=== PATIENT | male | born 1960 | race African-American/Black ===

== ENCOUNTER 2019-07-20 12:32 | Inpatient (IN) | payer OTHER ==
[~2019-07-20] VITALS: Ht 188 cm; Wt 124.8 kg
[2019-07-20 19:28] LABS: Basophils # (auto) 0 uL; Basophils % (auto) 0.3 % (0.0-2.0); Eosinophils # (auto) 0 uL; Eosinophils % (auto) 0.4 % (0.0-7.0); Hematocrit 38.1 % (41.0-53.0); Hemoglobin 12.4 g/dL (13.5-17.5); Lymphocytes # (auto) 1.6 uL; Lymphocytes % (auto) 17.4 % (10.0-50.0); Mean Corpuscular Hemoglobin 29.1 pg (28.0-32.0); Mean Corpuscular Hgb Conc. 32.6 g/dL (32.0-36.0); Mean Corpuscular Volume 89.3 fL (80.0-100.0); Monocytes % (auto) 11.1 % (0.0-12.0); Neutrophils # (auto) 6.6 uL; Neutrophils % (auto) 70.8 % (37.0-80.0); Nucleated Red Blood Cells % 0.1 %; Platelet Count (auto) 179 10^3/uL (140-450); Red Blood Cells 4.27 10^6/uL (4.5-5.90); Red Cell Distribution Width 15.2 % (11.8-14.3); White Blood Cell 9.4 10^3/uL (4.4-10.8)
[2019-07-20 19:41] LABS: Albumin 3.5 g/dL (3.4-5.0); Potassium 4.4 mmol/L (3.5-5.1)
[2019-07-20 19:45] LABS: BUN/Creatinine Ratio 15.3; Bilirubin, Total 0.5 mg/dL (0.2-1.0)
[2019-07-20] MEDS ORDERED: MORPHINE SULFATE 4 MG/ML SYR/VIAL IV ONE (19:45)
[2019-07-20] MEDS ORDERED: ONDANSETRON HCL 4 MG/2 ML VIAL IV ONE (19:45)
[2019-07-20] MEDS ORDERED: cefTRIAXone 1GM/50ML D5W 50 ML IV ONE (20:00)
[2019-07-20] MEDS ORDERED: CLINDAMYCIN 900MG IV 50 ML IV ONE (20:00)
[2019-07-20] MEDS ORDERED: ONDANSETRON HCL 4 MG/2 ML VIAL IV PRN (21:30)
[2019-07-20] MEDS ORDERED: TEMAZEPAM 15 MG CAP PO PRN (21:30)
[2019-07-20] MEDS ORDERED: ACETAMINOPHEN 325 MG TAB PO PRN (21:30)
[2019-07-20] MEDS: FAMOTIDINE 20 MG TAB PO SCH (22:23)
[2019-07-20] MEDS: HYDROcodone-ACET 5/325MG TAB PO PRN (23:12)
[2019-07-21] MEDS ORDERED: BUPR8MIS (00:08)
[2019-07-21] MEDS: SUMAtriptan SUCCINATE 25 MG TAB PO PRN ×2 (02:15→17:23)
[2019-07-21 05:00] VITALS: BP 119/74
[2019-07-21 05:38] LABS: Basophils # (auto) 0 uL; Basophils % (auto) 0.1 % (0.0-2.0); Eosinophils # (auto) 0.1 uL; Eosinophils % (auto) 0.5 % (0.0-7.0); Hematocrit 38.2 % (41.0-53.0); Hemoglobin 13.2 g/dL (13.5-17.5); Lymphocytes # (auto) 1.5 uL; Lymphocytes % (auto) 15.1 % (10.0-50.0); Mean Corpuscular Hgb Conc. 34.4 g/dL (32.0-36.0); Monocytes # (auto) 1.3 uL; Monocytes % (auto) 12.9 % (0.0-12.0); Neutrophils # (auto) 7.3 uL; Neutrophils % (auto) 71.4 % (37.0-80.0); Platelet Count (auto) 213 10^3/uL (140-450); Red Blood Cells 4.39 10^6/uL (4.5-5.90); Red Cell Distribution Width 14.4 % (11.8-14.3); White Blood Cell 10.2 10^3/uL (4.4-10.8)
[2019-07-21 06:15] LABS: Calcium 8.4 mg/dL (8.5-10.1); Potassium 4.1 mmol/L (3.5-5.1)
[2019-07-21 06:17] LABS: BUN/Creatinine Ratio 16.5
[2019-07-21] MEDS: CLINDAMYCIN 600MG IV 50 ML IV SCH ×3 (06:50→22:45)
[2019-07-21 08:00] VITALS: BP 132/72
[2019-07-21] MEDS: FAMOTIDINE 20 MG TAB PO SCH ×2 (10:37→22:45)
[2019-07-21] MEDS: ENOXAPARIN SOD 40 MG/0.4 ML SYRINGE SC SCH (10:38)
[2019-07-21 13:00] VITALS: BP 136/68
[2019-07-21 17:00] VITALS: BP 130/84
[2019-07-21 20:00] VITALS: BP 131/76
[2019-07-21] MEDS: cefTRIAXone 1GM/50ML D5W 50 ML IV SCH (21:03)
[2019-07-21 22:00] VITALS: BP 131/76
[2019-07-21] MEDS: HYDROcodone-ACET 5/325MG TAB PO PRN (22:48)
[2019-07-22] VITALS (7 sets, daily range): BP systolic 118–149; BP diastolic 51–88
[2019-07-22] MEDS: CLINDAMYCIN 600MG IV 50 ML IV SCH ×3 (05:32→21:34)
[2019-07-22] MEDS: FAMOTIDINE 20 MG TAB PO SCH ×2 (10:16→21:34)
[2019-07-22] MEDS: ENOXAPARIN SOD 40 MG/0.4 ML SYRINGE SC SCH (10:16)
[2019-07-22] MEDS: cefTRIAXone 1GM/50ML D5W 50 ML IV SCH (20:55)
[2019-07-22] MEDS: SUMAtriptan SUCCINATE 25 MG TAB PO PRN (21:14)
[2019-07-22] MEDS: HYDROcodone-ACET 5/325MG TAB PO PRN (22:15)
[2019-07-23 05:53] VITALS: BP 139/74
[2019-07-23] MEDS: CLINDAMYCIN 600MG IV 50 ML IV SCH (06:25)
[2019-07-23 08:00] VITALS: BP 143/62
[2019-07-23 09:00] VITALS: BP 132/71
[2019-07-23] MEDS: ENOXAPARIN SOD 40 MG/0.4 ML SYRINGE SC SCH (09:30)
[2019-07-23] MEDS: FAMOTIDINE 20 MG TAB PO SCH (09:30)
[2019-07-23 12:16] VITALS: BP 132/71
[2019-07-23 13:00] VITALS: BP 113/80
[2019-07-23] MEDS: HYDROcodone-ACET 5/325MG TAB PO PRN (13:11)
== END 2019-07-23 13:30 | disposition home or self-care (01) | DRG 603 ==
LOC: ER 12:32 → OVERFLOW 12:33 → WEST WING 22:52
PROVIDERS: ADMIT Nurse Practitioner; ATTEND Family Medicine
DX: L03.116 Cellulitis of left lower limb (principal); E87.1 Hypo-osmolality and hyponatremia; F17.210 Nicotine dependence, cigarettes, uncomplicated; E66.9 Obesity, unspecified; Z68.35 Body mass index [BMI] 35.0-35.9, adult; Z85.47 Personal history of malignant neoplasm of testis
CPT/HCPCS: 36415; 73700; 74176; 76870; 80048; 80053; 83605; 85025; 87040; 93971; 96365; 96366; 96368; 96375; G0378; J0696; J2405; J3490